=== PATIENT | female | born 1945 | race Caucasian/White ===

== ENCOUNTER → 2018-06-14 10:31 | Outpatient (CLI) | payer MEDICARE, OTHER, SELFPAY ==
[2018-06-14 11:25] LABS: Add Manual Diff / Slide Review NO; Basophils Percent Auto 0.7 % (0-2); Eosinophils Percent Auto 2.4 % (2-4); Hematocrit 38.8 % (36-46); Hemoglobin 13.1 g/dL (12.0-16.0); Lymphocytes Percent Auto 21.2 % (25-40); Mean Corpuscular HGB Conc 33.7 % (30-36); Mean Corpuscular Hemoglobin 30.6 PG (26-34); Mean Corpuscular Volume 90.9 fL (80-100); Monocytes Percent Auto 6.6 % (3-14); Neutrophils Absolute Auto 4100 /uL (3000-5900); Neutrophils Percent Auto 69.1 % (50-75); Platelet Count 320 X10^3/uL (150-400); Red Blood Cell Count 4.27 X10^6/uL (4.0-5.2); Red Cell Distribution Width 13.6 % (11.6-14.8)
[2018-06-14 12:12] LABS: Alanine Aminotransferase 31 IU/L (9-52); Albumin 4.2 g/dL (3.5-5.0); Albumin Globulin Ratio 1.6 (1.0-2.8); Alkaline Phosphatase 61 U/L (38-126); Aspartate Aminotransferase 28 IU/L (14-36); Bilirubin Total 0.6 mg/dL (0.2-1.3); Blood Urea Nitrogen 26 mg/dL (7-17); Calcium 9.9 mg/dL (8.4-10.2); Carbon Dioxide 32 mmol/L (22-32); Chloride 104 mmol/L (98-107); Cholesterol 292 mg/dL (140-199); Estimated Glomerular Filt Rate 54.5 mL/min (>60); Globulin 2.6 g/dL (1.7-4.1); Glucose 95 mg/dL (80-110); HDL Cholesterol 67 mg/dL (40-60); HEMOLYSIS < 15 (0-50); LDL Cholesterol Calculated 190 mg/dL (<100); Potassium 5.2 mmol/L (3.4-5.1); Sodium 143 mmol/L (137-145); Total Protein 6.8 g/dL (6.3-8.2); Triglycerides 176 mg/dL (35-150)
[2018-06-14 12:29] LABS: Vitamin D 25 Hydroxy (D3) 49.9 ng/mL (30.0-100.0)
[2018-06-14 12:43] LABS: Thyroid Stimulating Hormone 3.95 uIU/mL (0.47-4.68)
[2018-06-14 13:01] LABS: Vitamin B12 732 pg/mL (239-931)
== END ==
PROVIDERS: PCP Internal Medicine; Visit Provider Nurse Practitioner Family
DX: Z51.81 Encounter for therapeutic drug level monitoring (principal); F03.90 Unspecified dementia, unspecified severity, without behavioral disturbance, psychotic disturbance, mood disturbance, and anxiety; E78.5 Hyperlipidemia, unspecified; E56.9 Vitamin deficiency, unspecified
CPT/HCPCS: 36415; 80053; 80061; 82306; 82607; 84443; 85025

== ENCOUNTER → 2018-07-25 14:19 | Outpatient (CLI) | payer MEDICARE, OTHER, SELFPAY ==
[2018-07-25 15:12] LABS: Calcium 10.3 mg/dL (8.4-10.2); Chloride 102 mmol/L (98-107); Glucose 98 mg/dL (80-110); HEMOLYSIS < 15 (0-50); Potassium 4.6 mmol/L (3.4-5.1); Sodium 144 mmol/L (137-145)
[2018-07-25 15:15] LABS: BUN Creatinine Ratio 25.4 (6-22); Blood Urea Nitrogen 33 mg/dL (7-17); Carbon Dioxide 31 mmol/L (22-32); Estimated Glomerular Filt Rate 40.3 mL/min (>60)
== END ==
PROVIDERS: PCP Internal Medicine; Visit Provider Nurse Practitioner Family
DX: E87.5 Hyperkalemia (principal); N18.9 Chronic kidney disease, unspecified
CPT/HCPCS: 36415; 80048

== ENCOUNTER → 2018-08-22 14:33 | Outpatient (CLI) | payer MEDICARE, OTHER, SELFPAY ==
[2018-08-22 15:12] LABS: Add Manual Diff / Slide Review NO; Basophils Percent Auto 0.4 % (0-2); Eosinophils Percent Auto 2.4 % (2-4); Hematocrit 40.4 % (36-46); Hemoglobin 13.4 g/dL (12.0-16.0); Lymphocytes Percent Auto 18.6 % (25-40); Mean Corpuscular HGB Conc 33.3 % (30-36); Mean Corpuscular Hemoglobin 30.9 PG (26-34); Monocytes Percent Auto 6.4 % (3-14); Neutrophils Absolute Auto 5000 /uL (3000-5900); Neutrophils Percent Auto 72.2 % (50-75); Platelet Count 354 X10^3/uL (150-400); Red Blood Cell Count 4.34 X10^6/uL (4.0-5.2); Red Cell Distribution Width 13.5 % (11.6-14.8); White Blood Cell Count 6.9 X10^3/uL (4.5-11.0)
[2018-08-22 15:24] LABS: BUN Creatinine Ratio 19.2 (6-22); Blood Urea Nitrogen 23 mg/dL (7-17); Calcium 9.9 mg/dL (8.4-10.2); Carbon Dioxide 30 mmol/L (22-32); Chloride 101 mmol/L (98-107); Estimated Glomerular Filt Rate 44.2 mL/min (>60); Glucose 133 mg/dL (80-110); HEMOLYSIS < 15 (0-50); Potassium 5.3 mmol/L (3.4-5.1); Sodium 143 mmol/L (137-145)
== END ==
PROVIDERS: PCP Internal Medicine; Visit Provider Registered Nurse
DX: R53.83 Other fatigue (principal); N17.9 Acute kidney failure, unspecified
CPT/HCPCS: 36415; 80048; 85025

== ENCOUNTER → 2018-09-28 15:05 | Outpatient (CLI) | payer MEDICARE, OTHER, SELFPAY ==
[2018-09-28 16:39] LABS: BUN Creatinine Ratio 16.7 (6-22); Blood Urea Nitrogen 20 mg/dL (7-17); Calcium 10.1 mg/dL (8.4-10.2); Carbon Dioxide 30 mmol/L (22-32); Chloride 101 mmol/L (98-107); Estimated Glomerular Filt Rate 44.2 mL/min (>60); Glucose 110 mg/dL (80-110); HEMOLYSIS < 15 (0-50); Potassium 4.9 mmol/L (3.4-5.1); Sodium 144 mmol/L (137-145)
== END ==
PROVIDERS: PCP Internal Medicine; Visit Provider Registered Nurse
DX: E87.5 Hyperkalemia (principal); N17.9 Acute kidney failure, unspecified
CPT/HCPCS: 36415; 80048

== ENCOUNTER → 2018-11-22 14:22 | Outpatient (CLI) | payer MEDICARE, OTHER, SELFPAY ==
--- NOTE | 2018-11-22 | DI.RAD.S_ITS ---
PROCEDURE: XR KNEE LT 1TO2V INDICATIONS: PAIN AND SWELLING TECHNIQUE: 2 views of the knee were acquired. COMPARISON: [facility] [place], BILATERAL KNEE 3VW, 01/21/2017, 15:49. [facility] [place] [place], XR KNEE ARTHRITIC SERIES BI, 11/11/2017, 16:47. [facility], [place], KNEE 3V RIGHT, 07/28/2016, 12:49. FINDINGS: Bones: No fractures or dislocations, but there has been mild interval worsening of degenerative joint space narrowing at the medial and lateral compartments, and also slight increase in facet osteoarthritis at the patellofemoral joint. No suspicious bony lesions. Soft tissues: No joint effusion. No suspicious soft tissue calcifications. 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 Dictated by: Didier Elizondo M.D. on 11/22/2018 at 15:58 Approved by: Didier Elizondo M.D. on 11/22/2018 at 16:00
[2018-11-22 15:00] LABS: Add Manual Diff / Slide Review NO; Basophils Absolute Auto 100 /uL (0-100); Basophils Percent Auto 0.8 % (0-2); Eosinophils Absolute Auto 200 /uL (0-450); Eosinophils Percent Auto 2.5 % (2-4); Hematocrit 40.8 % (36-46); Hemoglobin 13.4 g/dL (12.0-16.0); Lymphocytes Absolute Auto 1300 /uL (1100-4500); Lymphocytes Percent Auto 20.2 % (25-40); Mean Corpuscular HGB Conc 32.9 % (30-36); Mean Corpuscular Hemoglobin 29.9 PG (26-34); Mean Corpuscular Volume 90.9 fL (80-100); Monocytes Absolute Auto 500 /uL (0-900); Monocytes Percent Auto 7.3 % (3-14); Neutrophils Absolute Auto 4500 /uL (1500-7000); Neutrophils Percent Auto 69.2 % (50-75); Platelet Count 401 X10^3/uL (150-400); Red Blood Cell Count 4.48 X10^6/uL (4.0-5.2); Red Cell Distribution Width 13.9 % (11.6-14.8); White Blood Cell Count 6.4 X10^3/uL (4.5-11.0)
[2018-11-22 15:19] LABS: BUN Creatinine Ratio 17.3 (6-22); Blood Urea Nitrogen 19 mg/dL (7-17); Calcium 9.9 mg/dL (8.4-10.2); Carbon Dioxide 31 mmol/L (22-32); Chloride 98 mmol/L (98-107); Estimated Glomerular Filt Rate 48.8 mL/min (>60); Glucose 102 mg/dL (80-110); HEMOLYSIS < 15 (0-50); Potassium 4.7 mmol/L (3.4-5.1); Sodium 138 mmol/L (137-145)
== END ==
PROVIDERS: Nurse Practitioner Family; PCP Internal Medicine; Visit Provider Registered Nurse
DX: D64.9 Anemia, unspecified (principal); I12.9 Hypertensive chronic kidney disease with stage 1 through stage 4 chronic kidney disease, or unspecified chronic kidney disease
CPT/HCPCS: 36415; 73560; 80048; 85025

== ENCOUNTER → 2018-12-14 16:12 | Outpatient (REF) | payer MEDICARE, OTHER, SELFPAY ==
[2018-12-14 16:39] LABS: Influenza A and B by PCR Rapid Negative (Negative)
== END ==
LOC: LAB 16:12
PROVIDERS: PCP Internal Medicine; Visit Provider Nurse Practitioner Family
DX: J02.9 Acute pharyngitis, unspecified (principal)
CPT/HCPCS: 87400

== ENCOUNTER → 2019-03-19 14:58 | Outpatient (CLI) | payer MEDICARE, OTHER, SELFPAY ==
[2019-03-19 16:24] LABS: BUN Creatinine Ratio 17.3 (6-22); Blood Urea Nitrogen 19 mg/dL (7-17); Carbon Dioxide 32 mmol/L (22-32); Chloride 101 mmol/L (98-107); Estimated Glomerular Filt Rate 48.7 mL/min (>60); Glucose 117 mg/dL (80-110); HEMOLYSIS < 15 (0-50); Potassium 4.7 mmol/L (3.4-5.1); Sodium 140 mmol/L (137-145)
== END ==
PROVIDERS: PCP Internal Medicine; Visit Provider Registered Nurse
DX: I72.9 Aneurysm of unspecified site (principal)
CPT/HCPCS: 36415; 80048

== ENCOUNTER 2020-05-20 03:12 | Emergency (ER) | payer MEDICARE, OTHER, SELFPAY ==
[2020-05-20 03:12] VITALS: BP 135/62; PULSE 70; RESP 16; TEMP 36.4; O2SAT 96
--- NOTE | 2020-05-20 03:25 | DI.RAD.S_ITS ---
PROCEDURE: XR HIP W PEL IF DONE LT 2V INDICATIONS: pain after fall TECHNIQUE: AP pelvis with lateral view(s) of the left hip(s). COMPARISON: None. FINDINGS: Bones: No fracture. Lower lumbar spondylosis and facet arthropathy. [id number] bilateral hip joint degeneration. Scattered vascular soft tissue calcifications. There is also calcification seen projecting at the greater trochanter on the right. Alignment of the sacroiliac joints intact. IMPRESSION: No fracture Dictated by: Julio Quijano M.D. on 05/20/2020 at 9:03 Approved by: Julio Quijano M.D. on 05/20/2020 at 9:05
--- NOTE | 2020-05-20 03:25 | ED.GENADULT ---
HPI - General Adult General Chief complaint: Fall Stated complaint: GLF Time Seen by Provider: 05/20/20 03:13 Source: EMS Mode of arrival: EMS Limitations: other (Dementia) History of Present Illness HPI narrative: Patient is a 75-year-old female. He is a DNR/DNI with comfort measures only. Her PLOSt form came with her and confirms this. EMS reports they were called by the [facility] stating that the patient was found on the ground next to her bed. It was reported by EMS that the nursing facility staff goes in and turns the patient approximately every hour. In the period of less than 1 hour after they went to turn the patient him and they returned an hour later they found the patient on the floor. Patient not on anticoagulation. Patient unable to provide any HPI. Related Data Home Medications Medication Instructions Recorded Confirmed ACETAMINOPHEN 500 mg PO Q6HP PRN #0 07/28/16 alendronate [Fosamax] 70 mg PO QWEEK #0 tab 07/28/16 methylcellulose (laxative) 500 mg PO #0 tab 07/28/16 [Citrucel] [CEROVITE SENIOR TAB] #0 03/24/17 calcium carbonate [Tums E-X] 750 mg PO QDAY #0 03/24/17 memantine [Namenda] 10 mg PO BID #0 03/24/17 carbidopa-levodopa 1 tab PO TID #0 05/26/17 docusate sodium 100 mg PO QDAY #0 05/26/17 misoprostol 100 mcg PO QDAY #0 05/26/17 Previous Rx's Medication Instructions Recorded albuterol sulfate [Ventolin HFA] 2 puff INH Q4HP PRN #1 inh 03/25/17 hydrocodone-acetaminophen 0 tab PO Q6HP PRN #30 tab 03/25/17 Allergies Allergy/AdvReac Type Severity Reaction Status Date / Time No Known Drug Allergies Allergy Verified 05/20/20 03:31 Review of Systems Review of Systems ROS Unobtainable: Unobtainable due to mental status/LOC Patient History Medical History Dementia (Acute) 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) Family History (Updated 11/03/15 @ 00:00 by Conversion Provider) Child Age: 74 Obesity, unspecified obesity severity, unspecified obesity type TSH deficiency Sister Age: 83 Healthy adult Social History marital status: lives independently: No Exam Initial Vital Signs Initial Vital Signs: Vital Signs Temperature 97.5 F L 05/20/20 03:12 Pulse Rate 70 05/20/20 03:12 Respiratory Rate 16 05/20/20 03:12 Blood Pressure 135/62 05/20/20 03:12 Pulse Oximetry 96 05/20/20 03:12 Const General: comfortable Limitations: altered mental status HENMT Head: normal to inspection and normocephalic Resp Effort & Inspection: normal respiratory effort Cardio Rate: regular rate Neuro General: patient awake and not oriented x3 Cognition: abnormal cognition Extrem Other: No gross deformities however patient does appear to have some discomfort with palpation left hip and movement to the left like Psych Appearance: well kempt Course Orders Ordered: ED Orders 05/20/20 03:25 XR hip w pel if done LT 2V Stat Vital Signs Vital signs: Vital Signs - 8 hr 05/20/20 03:12 Temperature 97.5 F L Pulse Rate 70 Respiratory Rate 16 Blood Pressure 135/62 Pulse Oximetry 96 Medical Decision Making Imaging Data Extremity x-ray #1: Attestation: I personally reviewed and interpreted this imaging study as follows: My Impression: Pelvis x-ray shows no acute fractures. [facility] Narrative Medical decision making narrative: Patient is at baseline mental status per the [facility] staff that contacted us. Patient not on anticoagulation. Does confirm that she is a DNR/DNI with limited interventions. There are no gross deformities found in any extremities on her exam. Did seem to have tenderness with palpation left hip on my exam however with nursing did not seem to cry out in pain at all with palpation of any of the extremities. The x-ray shows no acute fractures. Given her DNI/DNR limited interventions will hold on further workup for now. Patient will be transported back to facility. Discharge Plan Departure Patient Disposition: Home Clinical Impression: Fall Qualifiers: Encounter type: initial encounter Qualified Code(s): W19.XXXA - Unspecified fall, initial encounter Instructions: How to Prevent Falls Activity Restrictions/Additional Instructions: She can continue all of her medications as directed. She can return to the emergency department at any point for new or worsening symptoms Prescriptions: No Action alendronate [Fosamax] 70 MG tablet 70 mg PO QWEEK Qty: 0 RF: 0 methylcellulose (laxative) [Citrucel] 500 MG tablet 500 mg PO Qty: 0 RF: 0 ACETAMINOPHEN 500 mg PO Q6HP PRNQty: 0 RF: 0 calcium carbonate [Tums E-X] 750 MG tablet,chewable 750 mg PO QDAY Qty: 0 RF: 0 [CEROVITE SENIOR TAB] Qty: 0 RF: 0 memantine [Namenda] 10 MG tablet 10 mg PO BID Qty: 0 RF: 0 albuterol sulfate [Ventolin HFA] 90 MCG/PUFF HFA aerosol inhaler 2 puff INH Q4HP PRNQty: 1 RF: 0 hydrocodone-acetaminophen 5 MG/325 MG tablet 0 tab PO Q6HP PRNQty: 30 RF: 0 carbidopa-levodopa 25 MG/100 MG tablet 1 tab PO TID Qty: 0 RF: 0 docusate sodium 100 MG capsule 100 mg PO QDAY Qty: 0 RF: 0 misoprostol 100 MCG tablet 100 mcg PO QDAY Qty: 0 RF: 0 Referrals: Veronica Bowers MD [Primary Care Provider] -
--- NOTE | 2020-05-20 03:29 | PC.NURSE ---
Patient comes from [facility]. Staff reports repositioned her at 0130 and when returned to reposition her at 0230 found patient on ground. Staff reports no use of blood thinners. Fall unwitnessed. Patient has history of dementia and unable to provide details of event.
[2020-05-20 04:28] VITALS: BP 140/65; PULSE 70; RESP 16; O2SAT 95
[2020-05-20 05:00] VITALS: BP 166/67; PULSE 58; RESP 16; O2SAT 96
== END 2020-05-20 05:41 | disposition home or self-care (01) ==
PROVIDERS: Emergency Provider Emergency Medicine; PCP Internal Medicine
DX: M25.552 Pain in left hip (principal); W19.XXXA Unspecified fall, initial encounter; F03.90 Unspecified dementia, unspecified severity, without behavioral disturbance, psychotic disturbance, mood disturbance, and anxiety
CPT/HCPCS: 73502; 99283

== ENCOUNTER 2020-10-04 16:21 | Emergency (ER) | payer MEDICARE, OTHER, SELFPAY ==
[2020-10-04 16:21] VITALS: BP 136/71; PULSE 73; RESP 16; TEMP 36.5; O2SAT 97
[2020-10-04] MEDS: ONDANSETRON 4 MG/2 ML INJ IV (16:49)
[2020-10-04] MEDS: SODIUM CHLORIDE 0.9% 1,000 ML 150 ML IV (16:49)
[2020-10-04 16:51] LABS: Add Manual Diff / Slide Review NO; Basophils Absolute Auto 0 /uL (0-100); Basophils Percent Auto 0.4 % (0-2); Eosinophils Absolute Auto 200 /uL (0-450); Eosinophils Percent Auto 3.8 % (2-4); Hematocrit 38.7 % (36-46); Hemoglobin 12.8 g/dL (12.0-16.0); Lymphocytes Absolute Auto 1700 /uL (1100-4500); Lymphocytes Percent Auto 27.3 % (25-40); Mean Corpuscular Hemoglobin 30.6 PG (26-34); Mean Corpuscular Volume 92.6 fL (80-100); Monocytes Absolute Auto 500 /uL (0-900); Monocytes Percent Auto 7.2 % (3-14); Neutrophils Absolute Auto 3800 /uL (1500-7000); Neutrophils Percent Auto 61.3 % (50-75); Platelet Count 369 X10^3/uL (150-400); Red Blood Cell Count 4.18 X10^6/uL (4.0-5.2); Red Cell Distribution Width 13.5 % (11.6-14.8); White Blood Cell Count 6.3 X10^3/uL (4.5-11.0)
[2020-10-04 17:13] LABS: INR 1.1 (0.9-1.3); Prothrombin Time 12.1 SECONDS (10.1-12.7)
[2020-10-04 17:14] VITALS: PULSE 77; RESP 16; O2SAT 95
[2020-10-04 17:16] LABS: PTT Partial Thromboplastin Tim 34 SECONDS (26.4-36.2)
--- NOTE | 2020-10-04 17:21 | ED.NAVMDI ---
HPI - Nausea/Vomiting/Diarrhea General Chief complaint: Nausea/Vomiting/Diarrhea Stated complaint: vomited x 1, ? coffee ground emisis Time Seen by Provider: 10/04/20 16:22 Source: EMS Mode of arrival: EMS Limitations: other History of Present Illness HPI Narrative: 75-year-old female nonsmoker from local [facility] presents with a chief complaint of 1 episode of vomiting which may have been dark. There is no obvious blood. This happened at about 1:00 p.m. and at the change of shift the oncoming nursing staff became concerned, called her primary care provider who recommended she be sent to the emergency department for evaluation. She does have a remote history of alcohol abuse has never had any GI bleeding but family states that she had ?pre ?ulcers historically. Patient is a very poor historian and cannot contribute much at all so the story complaint: nausea and vomiting Onset (ago): hour(s) Description of Vomiting: other Description of Diarrhea: none Exacerbating factors: none Associated symptoms: denies other symptoms Related Data Home Medications Medication Instructions Recorded Confirmed ACETAMINOPHEN 500 mg PO Q6HP PRN #0 07/28/16 alendronate [Fosamax] 70 mg PO QWEEK #0 tab 07/28/16 methylcellulose (laxative) 500 mg PO #0 tab 07/28/16 [Citrucel] [CEROVITE SENIOR TAB] #0 03/24/17 calcium carbonate [Tums E-X] 750 mg PO QDAY #0 03/24/17 memantine [Namenda] 10 mg PO BID #0 03/24/17 carbidopa-levodopa 1 tab PO TID #0 05/26/17 docusate sodium 100 mg PO QDAY #0 05/26/17 misoprostol 100 mcg PO QDAY #0 05/26/17 Previous Rx's Medication Instructions Recorded albuterol sulfate [Ventolin HFA] 2 puff INH Q4HP PRN #1 inh 03/25/17 hydrocodone-acetaminophen 0 tab PO Q6HP PRN #30 tab 03/25/17 Allergies Allergy/AdvReac Type Severity Reaction Status Date / Time No Known Drug Allergies Allergy Verified 05/20/20 03:31 Review of Systems Review of Systems ROS Unobtainable: Unobtainable due to mental status/LOC Patient History Medical History (Updated 01/02/21 @ 18:48 by Houston Vivas DO) Dementia 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 No obvious distress, some dried vomit on her chin. Nonverbal HEAD: Atraumatic. Normocephalic. EYES: Pupils equal round and reactive. Extraocular motions intact. No scleral icterus. No injection or drainage. ENT: Nose without bleeding, purulent drainage. Throat without erythema, tonsillar hypertrophy or exudate. Airway patent. NECK: Trachea midline. Non tender CARDIOVASCULAR: Regular rate and rhythm without murmurs, gallops, or rubs. RESPIRATORY: Clear to auscultation. Breath sounds equal bilaterally. No wheezes, rales, or rhonchi. GASTROINTESTINAL: Abdomen soft, non-tender, nondistended. EXTREMITIES: No edema or joint tenderness. BACK: Nontender without deformity or crepitance. No flank tenderness. NEURO: Awake, no obvious focal neurologic finding. SKIN: No rash or erythema of visible areas Initial Vital Signs Initial Vital Signs: Vital Signs Temperature 97.7 F 10/04/20 16:21 Pulse Rate 73 10/04/20 16:21 Respiratory Rate 16 10/04/20 16:21 Blood Pressure 136/71 10/04/20 16:21 Pulse Oximetry 97 10/04/20 16:21 Course Course Course Narrative: no evidence of ongoing bleed. BUN 21. Reassuring exam. Hemodynamically stable. Patient is Comfort Measures and further investigation would be against her wishes. I've called her TIA who shares this opinion Orders Ordered: ED Orders 10/04/20 16:44 Complete Blood Count AUTO DIFF Stat Comprehensive Metabolic Panel Stat Partial Thromboplastin Time Stat Prothrombin Time INR Stat Type and Screen Stat Sodium Chloride (Normal Saline 0.9%) 1,000 mls @ 150 mls/hr IV CONT RODRIGO Last Admin: 10/04/20 16:49 Dose: 150 mls/hr Documented by: ISAIAH Discontinued Medications Ondansetron HCl (Ondansetron 4 Mg/2 Ml Inj) 4 mg IV NOW ONE Stop: 10/04/20 16:32 Last Admin: 10/04/20 16:49 Dose: 4 mg Documented by: ISAIAH Vital Signs Vital signs: Vital Signs - 8 hr 10/04/20 16:21 10/04/20 17:14 10/04/20 17:30 Temperature 97.7 F Pulse Rate 73 77 79 Respiratory Rate 16 16 24 Blood Pressure 136/71 127/70 Pulse Oximetry 97 95 94 10/04/20 18:00 10/04/20 18:01 10/04/20 18:30 Temperature Pulse Rate 84 82 85 Respiratory Rate 20 14 20 Blood Pressure 130/60 148/65 H Pulse Oximetry 94 94 94 MDM - Nausea/Vomiting/Diarrhea Lab Data Result diagrams: 10/04/20 16:44 10/04/20 16:44 Labs: Lab Results 10/04/20 10/04/20 10/04/20 Range/Units 16:44 16:44 16:44 WBC 6.3 (4.5-11.0) X10^3/uL RBC 4.18 (4.0-5.2) X10^6/uL Hgb 12.8 (12.0-16.0) g/dL Hct 38.7 (36-46) % MCV 92.6 (80-100) fL MCH 30.6 (26-34) PG MCHC 33.0 (30-36) % RDW 13.5 (11.6-14.8) % Plt Count 369 (150-400) X10^3/uL Neut % (Auto) 61.3 (50-75) % Lymph % (Auto) 27.3 (25-40) % [place] % (Auto) 7.2 (3-14) % Eos % (Auto) 3.8 (2-4) % Baso % (Auto) 0.4 (0-2) % Neut # (Auto) 3800 (5240-9931) /uL Lymph # (Auto) 1700 (6107-7283) /uL [place] # (Auto) 500 (0-900) /uL Eos # (Auto) 200 (0-450) /uL Baso # (Auto) 0 (0-100) /uL PT 12.1 (10.1-12.7) SECONDS INR 1.1 (0.9-1.3) APTT 34 (26.4-36.2) SECONDS Sodium 138 (137-145) mmol/L Potassium 4.5 (3.4-5.1) mmol/L Chloride 102 (98-107) mmol/L Carbon Dioxide 32 (22-32) mmol/L BUN 21 H (7-17) mg/dL Creatinine 0.86 (0.52-1.04) mg/dL Estimated GFR > 60.0 (>60) mL/min BUN/Creatinine Ratio 24.4 H (6-22) Glucose 90 (80-110) mg/dL Calcium 9.8 (8.4-10.2) mg/dL Total Bilirubin 0.4 (0.2-1.3) mg/dL AST 33 (14-36) IU/L ALT 19 (<35) IU/L Alkaline Phosphatase 73 (38-126) U/L Total Protein 7.5 (6.3-8.2) g/dL Albumin 4.2 (3.5-5.0) g/dL Globulin 3.3 (1.7-4.1) g/dL Albumin/Globulin Ratio 1.3 (1.0-2.8) Point of Care Testing Stool Occult Blood Negative Discharge Plan Departure Patient Disposition: Home Clinical Impression: Vomiting Qualifiers: Vomiting type: unspecified Vomiting Intractability: non-intractable Nausea presence: unspecified Qualified Code(s): R11.10 - Vomiting, unspecified Instructions: DI for Vomiting -- Adult Activity Restrictions/Additional Instructions: *You have been diagnosed with [ vomiting x1. Labs and exam are very reassuring ] *What to do: *Continue to take medications as directed *Follow up with your primary care provider in 2-3 days, call for an appointment. Let them know you were seen in the Emergency Department and that we ask that you be seen in follow up *Return to ER if you should have any new, worsening or concerning symptoms Prescriptions: No Action alendronate [Fosamax] 70 MG tablet 70 mg PO QWEEK Qty: 0 RF: 0 methylcellulose (laxative) [Citrucel] 500 MG tablet 500 mg PO Qty: 0 RF: 0 ACETAMINOPHEN 500 mg PO Q6HP PRNQty: 0 RF: 0 calcium carbonate [Tums E-X] 750 MG tablet,chewable 750 mg PO QDAY Qty: 0 RF: 0 [CEROVITE SENIOR TAB] Qty: 0 RF: 0 memantine [Namenda] 10 MG tablet 10 mg PO BID Qty: 0 RF: 0 albuterol sulfate [Ventolin HFA] 90 MCG/PUFF HFA aerosol inhaler 2 puff INH Q4HP PRNQty: 1 RF: 0 hydrocodone-acetaminophen 5 MG/325 MG tablet 0 tab PO Q6HP PRNQty: 30 RF: 0 carbidopa-levodopa 25 MG/100 MG tablet 1 tab PO TID Qty: 0 RF: 0 docusate sodium 100 MG capsule 100 mg PO QDAY Qty: 0 RF: 0 misoprostol 100 MCG tablet 100 mcg PO QDAY Qty: 0 RF: 0 Referrals: Veronica Bowers MD [Primary Care Provider] -
--- NOTE | 2020-10-04 17:27 | PC.NURSE ---
Patient brought to ED by EMS from [facility]. Has dementia and patient unable to supply history. Per EMS/[facility] staff patient had one episode of coffee-ground emesis at approximately 1300. No further episodes. Patient's PCP requested be brought to ED for evaluation.
[2020-10-04 17:30] VITALS: BP 127/70; PULSE 79; RESP 24; O2SAT 94
[2020-10-04 17:47] LABS: Alanine Aminotransferase 19 IU/L (<35); Albumin 4.2 g/dL (3.5-5.0); Albumin Globulin Ratio 1.3 (1.0-2.8); Alkaline Phosphatase 73 U/L (38-126); Aspartate Aminotransferase 33 IU/L (14-36); BUN Creatinine Ratio 24.4 (6-22); Bilirubin Total 0.4 mg/dL (0.2-1.3); Blood Urea Nitrogen 21 mg/dL (7-17); Calcium 9.8 mg/dL (8.4-10.2); Carbon Dioxide 32 mmol/L (22-32); Chloride 102 mmol/L (98-107); Estimated Glomerular Filt Rate > 60.0 mL/min (>60); Globulin 3.3 g/dL (1.7-4.1); Glucose 90 mg/dL (80-110); HEMOLYSIS 35 (0-50); Potassium 4.5 mmol/L (3.4-5.1); Sodium 138 mmol/L (137-145); Total Protein 7.5 g/dL (6.3-8.2)
[2020-10-04 18:00] VITALS: PULSE 84; RESP 20; O2SAT 94
[2020-10-04 18:01] VITALS: BP 130/60; PULSE 82; RESP 14; O2SAT 94
[2020-10-04 18:30] VITALS: BP 148/65; PULSE 85; RESP 20; O2SAT 94
== END 2020-10-04 21:15 | disposition home or self-care (01) ==
PROVIDERS: Emergency Provider Emergency Medicine; PCP Internal Medicine
DX: R11.10 Vomiting, unspecified (principal); F03.90 Unspecified dementia, unspecified severity, without behavioral disturbance, psychotic disturbance, mood disturbance, and anxiety
CPT/HCPCS: 36415; 80053; 82272; 85025; 85610; 85730; 86850; 86900; 86901; 96361; 96374; 99281; 99284; J2405